=== PATIENT | female | born 1935 | race Asian ===

== ENCOUNTER 2017-01-14 10:18 | Outpatient (CLI) | payer OTHER, BC | END 2017-01-14 20:04 | disposition home or self-care (01) | LOC: SRD 10:18 | DX: M17.0 Bilateral primary osteoarthritis of knee (principal) ==

== ENCOUNTER 2018-06-10 08:20 | Outpatient (CLI) | payer OTHER, BC | END 2018-06-10 21:21 | disposition home or self-care (01) | LOC: SMI 08:20 | PROVIDERS: ATTEND Family Medicine | DX: S93.421A Sprain of deltoid ligament of right ankle, initial encounter (principal); M77.31 Calcaneal spur, right foot; X58.XXXA Exposure to other specified factors, initial encounter; Y93.89 Activity, other specified; Y92.89 Other specified places as the place of occurrence of the external cause; Y99.8 Other external cause status | CPT/HCPCS: 73721 ==